=== PATIENT | female | born 1980 | race African-American/Black ===

== ENCOUNTER 2017-06-04 22:34 | Emergency (ER) | payer BC ==
[2017-06-04 22:58] VITALS: BP 149/82; PULSE 92; TEMP 98.1; BMI 29.5
--- NOTE | 2017-06-05 00:36 | PDOC ---
History of Present Illness <Briana Garza - Last Filed: 06/05/17 00:31> - History of Present Illness Initial Comments: 06/05/17 00:43 Patient is a 37 F, with PMHx of BPD, depression and substance abuse, who presents with 1 week of cold symptoms. Patient states that she has had a productive cough for a couple of weeks, producing thick mucus. Her cough has worsened in the past week. She is a current every day tobacco smoker and snorts cocaine regularly. She also mentioned that she occasionally has fainting spells that has been going on for years. She denies any fevers, chills, abdominal pain. She denies any chest pain, SOB. She denies any nausea, vomiting, diarrhea , or constipation. PCP: Darlene Jarrett Hx: Cocaine and tobacco use. Past suicidal attempts. <Vivienne Collins - Last Filed: 06/05/17 01:09> - General Chief Complaint: Cold Symptoms Stated Complaint: COLD SYMPTOMS Time Seen by Provider: 06/04/17 23:59 Past History - Past Medical History Psychiatric Problems: Yes (depression) - Immunization History Immunization Up to Date: Yes - Suicide/Smoking/Psychosocial Hx Smoking Status: Yes Smoking History: Never smoked Have you smoked in the past 12 months: Yes Number of Cigarettes Smoked Daily: 20 Information on smoking cessation initiated: No Hx Alcohol Use: No Drug/Substance Use Hx: No Substance Use Type: Alcohol, Cocaine, Marijuana <Briana Garza - Last Filed: 06/05/17 00:31> <Vivienne Collins - Last Filed: 06/05/17 01:09> - Past Medical History Allergies/Adverse Reactions: Allergies Allergy/AdvReac Type Severity Reaction Status Date / Time No Known Allergies Allergy Verified 06/04/17 22:58 Review of Systems - Review of Systems Comments:: 06/05/17 00:44 See HPI. All other systems reviewed and unremarkable <Vivienne Collins - Last Filed: 06/05/17 01:09> *Physical Exam - Vital Signs Last Vital Signs Temp Pulse Resp BP Pulse Ox 98.1 F 92 H 16 149/82 100 06/04/17 22:55 06/04/17 22:55 06/04/17 22:55 06/04/17 22:55 06/04/17 22:55 <Briana Garza - Last Filed: 06/05/17 00:31> - Vital Signs Last Vital Signs Temp Pulse Resp BP Pulse Ox 98.1 F 92 H 16 149/82 100 06/04/17 22:55 06/04/17 22:55 06/04/17 22:55 06/04/17 22:55 06/04/17 22:55 - Physical Exam Comments: 06/05/17 00:44 GENERAL: Awake, alert, and fully oriented, in no acute distress HEENT: EOMI, JEREMIAH MMM, OP WNL NECK: NCAT, no midline cervical tenderness CARDIOVASCULAR: RRR, nl s1/s2, no m/r/g LUNGS: CTABL, no w/r/r ABDOMEN: Soft, NTND. No CVA tenderness. EXTREMITIES: No edema, WWP, no rash NEURO: Neuro grossly intact, gait WNL, moving all 4. A&O x 3, mood/affect WNL. SKIN: Warm, Dry, normal turgor, no rashes or lesions noted. <Vivienne Collins - Last Filed: 06/05/17 01:09> Medical Decision Making - Medical Decision Making 06/05/17 00:31 37yoF extensvie psychi history, active PSA w/ IN cocaine, + active cig smoking presents w/slightly productive cough x weeks and sinus congestion. - cxr - drug and smoking cessation discussed. secondary complaint of lifelong syncopal events, last one > 1 week ago - instructed to f/u w/ PMD, Dr. Grimaldo. tertiary complaint of noncompliant w/ psychiatric care chronically - instructed to call her psychiatrist, Dr. Leonard ____ and schedule appointment. <Briana Garza - Last Filed: 06/05/17 00:31> *DC/Admit/Observation/Transfer - Discharge Dispostion Admit: No <GregBriana - Last Filed: 06/05/17 00:31> - Attestations Scribe Attestion: 06/05/17 00:45 Documentation prepared by Vivienne Collins, acting as medical lab assistant for Briana Garza MD. <Vivienne Collins - Last Filed: 06/05/17 01:09> Diagnosis at time of Disposition: Cocaine use, Cough - Discharge Dispostion Disposition: HOME Condition at time of disposition: Good - Referrals Referrals: Darlene Grimaldo MD [Primary Care Provider] - - Patient Instructions Printed Discharge Instructions: DI for Cough -- Adult Additional Instructions: cessation of smoking. do not use illegal drugs. Call your primary doctor and make an appointment to be seen next week to discuss long-term fainting events. Call or walk-in to your psychiatrist's office to re-establish psychiatric care now that you are back in [place]. - Post Discharge Activity
== END 2017-06-05 04:56 | disposition home or self-care (01) ==
LOC: JER 22:34
DX: J34.89 Other specified disorders of nose and nasal sinuses (principal); F14.10 Cocaine abuse, uncomplicated
CPT/HCPCS: 71046-TC-FY; 84703; 99281-25

== ENCOUNTER 2017-06-24 10:21 | Inpatient (IN) | payer OTHER ==
[2017-06-24 11:15] VITALS: BMI 29.9
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
[2017-06-24] MEDS ORDERED: MAGNESIUM HYDROX 2400MG/30ML ORAL SUSPENSION 30 ML CUP PO PRN (15:04)
[2017-06-24] MEDS ORDERED: NICOTINE POLACRILEX 4 MG GUM BUC PRN (15:04)
[2017-06-24] MEDS ORDERED: IBUPROFEN 400 MG TABLET (FP) PO PRN (15:04)
[2017-06-24] MEDS ORDERED: chlordiazePOXIDE HCL 25 MG CAPSULE PO PRN (15:04)
[2017-06-24] MEDS ORDERED: ACETAMINOPHEN 325 MG TABLET (FP) PO PRN (15:04)
[2017-06-24] MEDS ORDERED: LOPERAMIDE HCL 2 MG CAPSULE PO PRN (15:04)
[2017-06-24] MEDS ORDERED: guaiFENesin/D-METHORPHAN HB 10 ML UNIT-DOSE CUPS PO PRN (15:04)
[2017-06-24] MEDS ORDERED: MAG HYDROX/AL HYDROX/SIMETH 30 ML UNIT-DOSE CUP PO PRN (15:04)
[2017-06-24] MEDS ORDERED: MENTHOL/PHENOL 1 EACH UD MM PRN (15:04)
[2017-06-24] MEDS ORDERED: P-EPHED 60MG/TRIPROLIDI 2.5MG TABLET PO PRN (15:04)
[2017-06-24] MEDS ORDERED: MAGNESIUM CITRATE 300 ML BOTTLE PO PRN (15:04)
[2017-06-24] MEDS ORDERED: chlordiazePOXIDE HCL 25 MG CAPSULE PO ONE (15:45)
--- NOTE | 2017-06-24 15:48 | CONSULT ---
[facility] Psychiatric Consult - Data Date of interview: 06/24/17 Admission source: [facility] Identifying data: This is 37 years old AA female, single, homeless, unemployed, on PA with history of Bipolar Disorder, history of psychiatric hospitalizations , seeking detox management after abusing Alcohol, Cocaine, Cannabis and PCP. Substance Abuse History: Urine Drug Screen Results: THC-Marijuana, PCP- Phencyclidine, TCA-Tricyclic Antidepress. - Substances Abused. Alcohol. Route: Oral. Frequency: Daily. Amount used: 1 PINT VODKA , 1 PINT TEQUILA. Age of first use: 18. Date of Last Use: 06/24/17. Cocaine. Route: SNIFFING. Frequency: Daily. Amount used: $100. Age of first use: 24. Date of Last Use: 06/24/17. Ectasy. Route: Oral. Frequency: 1-2 times per week. Amount used: 4 PILLS. Age of first use: 24. Date of Last Use: . Marijuana/Hashish. Route: Smoking. Frequency: Daily. Amount used: $ 50. Age of first use: 18. Date of Last Use: 06/24/17. PCP. Route: Smoking. Frequency: 3-6 times per week. Amount used: $100. Age of first use: 28. Date of Last Use: 06/24/17 Medical History: Anemia history, Psychiatric History: Patient reports to carry Bipolar disorder, reports most recent psychiatric admission on 2017 at [facility], reports to carry Bipolar Disorder, taking prior to admission: Buspar 10mg po bid. Trazodone 150mg po qhs. Zyprexa 10 mg po qhs. Patient reports suicidal ideation history, reports history of suicidal attempts.Denies suicidal ideation at this time. Physical/Sexual Abuse/Trauma History: Denies. unclear Additional Comment: Urine Drug Screen Results: THC-Marijuana, PCP-Phencyclidine , TCA-Tricyclic Antidepress. Buspar 10mg po bid. Trazodone 150mg po qhs. Zyprexa 10 mg po qhs Mental Status Exam - Mental Status Exam Alert and Oriented to: Place, Person Cognitive Function: Fair Patient Appearance: Unkempt Mood: Anxious Affect: Mood Congruent Patient Behavior: Cooperative Speech Pattern: Appropriate Voice Loudness: Normal Thought Process: Circumstantial Hallucinations: Denies Suicidal Ideation: Denies Homicidal Ideation: Denies Insight/Judgement: Fair Sleep: Difficulty falling asleep Appetite: Weight gain Muscle strength/Tone: Normal Gait/Station: Normal Additional Comments: Buspar 10mg po bid. Trazodone 150mg po qhs. Zyprexa 10 mg po qhs Psychiatric Findings - Problem List ([place] 1, 2,3) (1) Alcohol dependence with uncomplicated withdrawal Status: Deleted (2) Cocaine dependence, uncomplicated Status: Chronic (3) Ecstasy type drug dependence Status: Chronic (4) PCP dependence Status: Chronic (5) History of bipolar disorder Status: Chronic (6) Cocaine use Status: Deleted (7) Bipolar disorder Status: Chronic - Initial Treatment Plan Initial Treatment Plan: Buspar 10mg po bid. Trazodone 150mg po qhs. Zyprexa 10 mg po qhs
[2017-06-24] MEDS: NICOTINE 21 MG/24 HOURS TOPICAL PATCH TD SCH (16:03)
[2017-06-24] MEDS: chlordiazePOXIDE HCL 25 MG CAPSULE PO SCH ×2 (17:43→22:32)
[2017-06-24] MEDS ORDERED: MELATONIN 5 MG TABLETS PO PRN (22:00)
[2017-06-24] MEDS: THIAMINE HCL 100 MG TABLET (FP) PO SCH (22:32)
[2017-06-24] MEDS: traZODone HCL 50 MG TABLET (FP) PO SCH (22:33)
[2017-06-24] MEDS: busPIRone HCL 10 MG TABLET (FP) PO SCH (22:33)
[2017-06-24] MEDS: OLANZapine 10 MG TABLET PO SCH (22:33)
[2017-06-25 01:28] LABS: URINE APPEARANCE CLOUDY; URINE BILIRUBIN NEGATIVE (<2.0 mg/dL); URINE BLOOD NEGATIVE (NEGATIVE); URINE COLOR YELLOW; URINE GLUCOSE (UA) NEGATIVE (NEGATIVE); URINE KETONE NEGATIVE (NEGATIVE); URINE LEUK ESTERASE NEGATIVE (NEGATIVE); URINE NITRITE NEGATIVE (NEGATIVE); URINE PROTEIN NEGATIVE (NEGATIVE); URINE UROBILINOGEN NEGATIVE mg/dL (0.2-1.0)
[2017-06-25] MEDS: chlordiazePOXIDE HCL 25 MG CAPSULE PO SCH ×4 (06:36→23:06)
--- NOTE | 2017-06-25 10:09 | EKG ---
Test Reason : Blood Pressure : / mmHG Vent. Rate : 083 BPM Atrial Rate : 083 BPM P-R Int : 126 ms QRS Dur : 086 ms QT Int : 364 ms P-R-T Axes : 062 055 049 degrees QTc Int : 427 ms NORMAL SINUS RHYTHM NORMAL ECG WHEN COMPARED WITH ECG OF 07-FEB-2015 13:48, NO SIGNIFICANT CHANGE WAS FOUND Confirmed by BUTCH ZAVALA MD ([id number]) on 06/25/2017 10:09:16 AM Referred By: Confirmed By:BUTCH ZAVALA MD
[2017-06-25 10:27] LABS: HEMATOCRIT 41.6 % (32.4-45.2); MCH 32.8 pg (25.7-33.7); MCHC 33.6 g/dl (32.0-36.0); MEAN CELL VOLUME 97.4 fl (80-96); MEAN PLT VOLUME 10.5 fl (7.5-11.1); PLATELET COUNT 233 K/MM3 (134-434); RBC 4.28 M/mm3 (3.60-5.2); WHITE BLOOD COUNT 6.7 K/mm3 (4.0-10.0)
[2017-06-25] MEDS: PRENATAL VITAMINS W/ FOLIC ACID TABLET (FP) PO SCH (10:40)
[2017-06-25] MEDS: busPIRone HCL 10 MG TABLET (FP) PO SCH ×2 (10:40→23:06)
[2017-06-25] MEDS: NICOTINE 21 MG/24 HOURS TOPICAL PATCH TD SCH (10:41)
--- NOTE | 2017-06-25 12:07 | PN ---
BHS CIWA - CIWA Score Nausea/Vomitin Muscle Tremors: 2 Anxiety: 2 Agitation: 2 Paroxysmal Sweats: 3 Orientation: 0-Oriented Tacttile Disturbances: 1-Very Mild Itch/Numbness Auditory Disturbances: 0-None Visual Disturbances: 0-None Headache: 0-None Present CIWA-Ar Total Score: 12 BHS Progress Note (SOAP) Subjective: interrupted sleep, sweats Vital Signs Temperature 98.1 F 06/25/17 10:00 Pulse Rate 99 H 06/25/17 10:00 Respiratory Rate 16 06/25/17 10:00 Blood Pressure 108/59 06/25/17 10:00 O2 Sat by Pulse Oximetry (%) Laboratory Tests 06/25/17 06/25/17 06/25/17 00:36 06:20 06:20 WBC RBC Hgb Hct MCV MCH MCHC RDW Plt Count MPV Urine Color Yellow Urine Appearance Cloudy Urine pH 5.0 Ur Specific [place] 1.024 Urine Protein Negative Urine Glucose (UA) Negative Urine Ketones Negative Urine Blood Negative Urine Nitrite Negative Urine Bilirubin Negative Urine Urobilinogen Negative Ur Leukocyte Esterase Negative RPR Titer Nonreactive HIV 1&2 Antibody Screen Negative HIV P24 Antigen Negative 06/25/17 06:20 WBC 6.7 RBC 4.28 Hgb 14.0 Hct 41.6 MCV 97.4 H MCH 32.8 MCHC 33.6 RDW 13.0 Plt Count 233 MPV 10.5 D Urine Color Urine Appearance Urine pH Ur Specific [place] Urine Protein Urine Glucose (UA) Urine Ketones Urine Blood Urine Nitrite Urine Bilirubin Urine Urobilinogen Ur Leukocyte Esterase RPR Titer HIV 1&2 Antibody Screen HIV P24 Antigen ppt aox3 in nad ambulating Plan: cont. detox increase fluids
[2017-06-25 16:14] LABS: ALBUMIN 4.2 g/dl (3.4-5.0); ANION GAP 12 (8-16); BLOOD UREA NITROGEN 10 mg/dL (7-18); CALCIUM 9.3 mg/dL (8.5-10.1); CHLORIDE 105 mmol/L (98-107); CO2 26 mmol/L (21-32); GLUCOSE,RANDOM 74 mg/dL (74-106); POTASSIUM 4.3 mmol/L (3.5-5.1); SGOT/AST 18 U/L (15-37); SGPT/ALT 20 U/L (12-78); SODIUM 143 mmol/L (136-145)
[2017-06-25 16:16] LABS: ALK PHOS 76 U/L (45-117); BILIRUBIN,TOTAL 0.8 mg/dL (0.2-1.0); TOT PROT 7.2 g/dl (6.4-8.2)
[2017-06-25] MEDS: THIAMINE HCL 100 MG TABLET (FP) PO SCH (23:05)
[2017-06-25] MEDS: OLANZapine 10 MG TABLET PO SCH (23:06)
[2017-06-25] MEDS: traZODone HCL 50 MG TABLET (FP) PO SCH (23:06)
[2017-06-26] MEDS: chlordiazePOXIDE HCL 25 MG CAPSULE PO SCH ×2 (06:25→10:51)
[2017-06-26] MEDS: PRENATAL VITAMINS W/ FOLIC ACID TABLET (FP) PO SCH (10:51)
[2017-06-26] MEDS: busPIRone HCL 10 MG TABLET (FP) PO SCH (10:51)
[2017-06-26] MEDS: NICOTINE 21 MG/24 HOURS TOPICAL PATCH TD SCH (10:52)
--- NOTE | 2017-06-26 11:26 | PN ---
S CIWA - CIWA Score Nausea/Vomitin Muscle Tremors: 3 Anxiety: 3 Agitation: 2 Paroxysmal Sweats: 1-Minimal Palms Moist Orientation: 0-Oriented Tacttile Disturbances: 1-Very Mild Itch/Numbness Auditory Disturbances: 1-Very Mild Visual Disturbances: 0-None Headache: 2-Mild CIWA-Ar Total Score: 16 BHS Progress Note (SOAP) Subjective: ALERT,IRRITABLE,ANXIOUS,INTERRUPTED SLEEP,TREMOR Objective: 06/26/17 11:23 Vital Signs Temperature 97.3 F L 06/26/17 06:59 Pulse Rate 96 H 06/26/17 06:59 Respiratory Rate 18 06/26/17 06:59 Blood Pressure 115/69 06/26/17 06:59 O2 Sat by Pulse Oximetry (%) EKG NSR,NORMAL ECG Laboratory Last Values WBC 6.7 K/mm3 (4.0-10.0) 06/25/17 06:20 RBC 4.28 M/mm3 (3.60-5.2) 06/25/17 06:20 Hgb 14.0 GM/dL (10.7-15.3) 06/25/17 06:20 Hct 41.6 % (32.4-45.2) 06/25/17 06:20 MCV 97.4 fl (80-96) H 06/25/17 06:20 MCH 32.8 pg (25.7-33.7) 06/25/17 06:20 MCHC 33.6 g/dl (32.0-36.0) 06/25/17 06:20 RDW 13.0 % (11.6-15.6) 06/25/17 06:20 Plt Count 233 K/MM3 (134-434) 06/25/17 06:20 MPV 10.5 fl (7.5-11.1) D 06/25/17 06:20 Sickle Cell Screen Negative (NEGATIVE) 06/25/17 06:20 Sodium 143 mmol/L (136-145) 06/25/17 06:20 Potassium 4.3 mmol/L (3.5-5.1) 06/25/17 06:20 Chloride 105 mmol/L (98-107) 06/25/17 06:20 Carbon Dioxide 26 mmol/L (21-32) 06/25/17 06:20 Anion Gap 12 (8-16) 06/25/17 06:20 BUN 10 mg/dL (7-18) 06/25/17 06:20 Creatinine 1.0 mg/dL (0.55-1.02) 06/25/17 06:20 Creat Clearance w eGFR > 60 (>60) 06/25/17 06:20 Random Glucose 74 mg/dL (74-106) 06/25/17 06:20 Calcium 9.3 mg/dL (8.5-10.1) 06/25/17 06:20 Total Bilirubin 0.8 mg/dL (0.2-1.0) D 06/25/17 06:20 AST 18 U/L (15-37) 06/25/17 06:20 ALT 20 U/L (12-78) 06/25/17 06:20 Alkaline Phosphatase 76 U/L (45-117) 06/25/17 06:20 Total Protein 7.2 g/dl (6.4-8.2) 06/25/17 06:20 Albumin 4.2 g/dl (3.4-5.0) 06/25/17 06:20 Urine Color Yellow 06/25/17 00:36 Urine Appearance Cloudy 06/25/17 00:36 Urine pH 5.0 (5.0-8.0) 06/25/17 00:36 Ur Specific [place] 1.024 (1.001-1.035) 06/25/17 00:36 Urine Protein Negative (NEGATIVE) 06/25/17 00:36 Urine Glucose (UA) Negative (NEGATIVE) 06/25/17 00:36 Urine Ketones Negative (NEGATIVE) 06/25/17 00:36 Urine Blood Negative (NEGATIVE) 06/25/17 00:36 Urine Nitrite Negative (NEGATIVE) 06/25/17 00:36 Urine Bilirubin Negative (<2.0 mg/dL) 06/25/17 00:36 Urine Urobilinogen Negative mg/dL (0.2-1.0) 06/25/17 00:36 Ur Leukocyte Esterase Negative (NEGATIVE) 06/25/17 00:36 RPR Titer Nonreactive (NONREACTIVE) 06/25/17 06:20 HIV 1&2 Antibody Screen Negative 06/25/17 06:20 HIV P24 Antigen Negative 06/25/17 06:20 Assessment: 06/26/17 11:25 WITHDRAWAL SYMPTOM Plan: CONTINUE DETOX
[2017-06-26 11:29] VITALS: BP 120/75; PULSE 95; TEMP 97.5
--- NOTE | 2017-06-26 11:33 | DS ---
[facility] Detox Discharge Summary Admission Date: 06/24/17 Discharge Date: 06/26/17 - History Present History: Alcohol Dependence, Cocaine Dependence Additional Comments: PATIENT DID NOT WANT TO COMPLETE TREATMENT,STATED HAS PERSONAL ISSUES TO TAKE CARE OFF,SEEN BY COUNSELOR,SIGNED RELEASE AMA Pertinent Past History: PCP DEPENDENCE ECSTACY DRUG DEPENDENCE BIPOLAR DISORDER - Physical Exam Results Vital Signs: Vital Signs Temperature 97.5 F L 06/26/17 11:28 Pulse Rate 95 H 06/26/17 11:28 Respiratory Rate 20 06/26/17 11:28 Blood Pressure 120/75 06/26/17 11:28 O2 Sat by Pulse Oximetry (%) Pertinent Admission Physical Exam Findings: WITHDRAWAL SINGS AND SYMPTOM Laboratory Last Values WBC 6.7 K/mm3 (4.0-10.0) 06/25/17 06:20 RBC 4.28 M/mm3 (3.60-5.2) 06/25/17 06:20 Hgb 14.0 GM/dL (10.7-15.3) 06/25/17 06:20 Hct 41.6 % (32.4-45.2) 06/25/17 06:20 MCV 97.4 fl (80-96) H 06/25/17 06:20 MCH 32.8 pg (25.7-33.7) 06/25/17 06:20 MCHC 33.6 g/dl (32.0-36.0) 06/25/17 06:20 RDW 13.0 % (11.6-15.6) 06/25/17 06:20 Plt Count 233 K/MM3 (134-434) 06/25/17 06:20 MPV 10.5 fl (7.5-11.1) D 06/25/17 06:20 Sickle Cell Screen Negative (NEGATIVE) 06/25/17 06:20 Sodium 143 mmol/L (136-145) 06/25/17 06:20 Potassium 4.3 mmol/L (3.5-5.1) 06/25/17 06:20 Chloride 105 mmol/L (98-107) 06/25/17 06:20 Carbon Dioxide 26 mmol/L (21-32) 06/25/17 06:20 Anion Gap 12 (8-16) 06/25/17 06:20 BUN 10 mg/dL (7-18) 06/25/17 06:20 Creatinine 1.0 mg/dL (0.55-1.02) 06/25/17 06:20 Creat Clearance w eGFR > 60 (>60) 06/25/17 06:20 Random Glucose 74 mg/dL (74-106) 06/25/17 06:20 Calcium 9.3 mg/dL (8.5-10.1) 06/25/17 06:20 Total Bilirubin 0.8 mg/dL (0.2-1.0) D 06/25/17 06:20 AST 18 U/L (15-37) 06/25/17 06:20 ALT 20 U/L (12-78) 06/25/17 06:20 Alkaline Phosphatase 76 U/L (45-117) 06/25/17 06:20 Total Protein 7.2 g/dl (6.4-8.2) 06/25/17 06:20 Albumin 4.2 g/dl (3.4-5.0) 06/25/17 06:20 Urine Color Yellow 06/25/17 00:36 Urine Appearance Cloudy 06/25/17 00:36 Urine pH 5.0 (5.0-8.0) 06/25/17 00:36 Ur Specific [place] 1.024 (1.001-1.035) 06/25/17 00:36 Urine Protein Negative (NEGATIVE) 06/25/17 00:36 Urine Glucose (UA) Negative (NEGATIVE) 06/25/17 00:36 Urine Ketones Negative (NEGATIVE) 06/25/17 00:36 Urine Blood Negative (NEGATIVE) 06/25/17 00:36 Urine Nitrite Negative (NEGATIVE) 06/25/17 00:36 Urine Bilirubin Negative (<2.0 mg/dL) 06/25/17 00:36 Urine Urobilinogen Negative mg/dL (0.2-1.0) 06/25/17 00:36 Ur Leukocyte Esterase Negative (NEGATIVE) 06/25/17 00:36 RPR Titer Nonreactive (NONREACTIVE) 06/25/17 06:20 HIV 1&2 Antibody Screen Negative 06/25/17 06:20 HIV P24 Antigen Negative 06/25/17 06:20 Vital Signs Temperature 97.5 F L 06/26/17 11:28 Pulse Rate 95 H 06/26/17 11:28 Respiratory Rate 20 06/26/17 11:28 Blood Pressure 120/75 06/26/17 11:28 O2 Sat by Pulse Oximetry (%) - Medication Discharge Medications: Ambulatory Orders Buspirone HCl [Buspar -] 10 mg PO BID #60 tablet 06/24/17 Olanzapine [ZyPREXA -] 10 mg PO HS #30 tablet 06/24/17 traZODone HCL [Desyrel -] 150 mg PO HS #30 tablet 06/24/17 - Diagnosis (1) Alcohol dependence with uncomplicated withdrawal Current Visit: Yes Status: Chronic (2) Cocaine dependence, uncomplicated Current Visit: Yes Status: Chronic (3) Ecstasy type drug dependence Current Visit: Yes Status: Chronic (4) History of bipolar disorder Current Visit: Yes Status: Chronic (5) PCP dependence Current Visit: Yes Status: Chronic (6) Cocaine use Current Visit: No Status: Chronic - AMA Did Patient Leave Against Medical Advice: Yes
[2017-06-26] MEDS ORDERED: chlordiazePOXIDE 5 MG CAPSULE PO SCH (17:00)
[2017-06-27] MEDS ORDERED: chlordiazePOXIDE HCL 10 MG CAPSULE PO SCH (17:00)
== END 2017-06-26 11:53 | disposition left against medical advice (07) | DRG 770 ==
LOC: YASAS 10:21 → Y6N 15:12
PROVIDERS: ADMIT Internal Medicine; ATTEND Internal Medicine
PROC: HZ2ZZZZ Detoxification Services for Substance Abuse Treatment (ICD-10-PCS; principal; 2017-06-24)
DX: F10.230 Alcohol dependence with withdrawal, uncomplicated (principal); F14.20 Cocaine dependence, uncomplicated; F15.20 Other stimulant dependence, uncomplicated; F16.20 Hallucinogen dependence, uncomplicated; F31.9 Bipolar disorder, unspecified; Z86.2 Personal history of diseases of the blood and blood-forming organs and certain disorders involving the immune mechanism; Z91.5 Personal history of self-harm; Z87.42 Personal history of other diseases of the female genital tract; Z86.19 Personal history of other infectious and parasitic diseases
CPT/HCPCS: 36415; 80053; 81003; 85027; 85660; 86593; 87389; 93005; 93010

== ENCOUNTER 2017-06-28 10:34 | Inpatient (IN) | payer OTHER ==
[2017-06-28 10:46] VITALS: BMI 31.6
--- NOTE | 2017-06-28 11:10 | HP ---
[facility] Re[facility] Assess/Revision - Admission History Admitted to Rehab from: [facility] Date of Admission to Rehab: 06/28/2017 - Vital signs Vital Signs: Vital Signs Period Temp Pulse Resp BP Sys/Shultz Pulse Ox Last 24 Hr 97 F 92 18 152/89 - Findings Detox History & Physical reviewed: Yes Concur with findings: Yes Inpatient Rehab Admission - Initial Determination Are CD services needed?: Yes Free of communicable disease: Yes Not in need of hospitalization: Yes - Rehab Admission Criteria Lacks judgement: Yes Patient is meeting Inpatient Rehab admission criteria:: Yes
[2017-06-28] MEDS ORDERED: LOPERAMIDE HCL 2 MG CAPSULE PO PRN (11:12)
[2017-06-28] MEDS ORDERED: ACETAMINOPHEN 325 MG TABLET (FP) PO PRN (11:12)
[2017-06-28] MEDS ORDERED: MENTHOL/PHENOL 1 EACH UD MM PRN (11:12)
[2017-06-28] MEDS ORDERED: hydrOXYzine PAMOATE 50 MG CAPSULE (FP) PO PRN (11:12)
[2017-06-28] MEDS ORDERED: IBUPROFEN 400 MG TABLET (FP) PO PRN (11:12)
[2017-06-28] MEDS ORDERED: P-EPHED 60MG/TRIPROLIDI 2.5MG TABLET PO PRN (11:12)
[2017-06-28] MEDS ORDERED: NICOTINE POLACRILEX 2 MG GUM BUC PRN (11:12)
[2017-06-28] MEDS ORDERED: MAGNESIUM HYDROX 2400MG/30ML ORAL SUSPENSION 30 ML CUP PO PRN (11:12)
[2017-06-28] MEDS ORDERED: MAGNESIUM CITRATE 300 ML BOTTLE PO PRN (11:12)
[2017-06-28] MEDS ORDERED: guaiFENesin/D-METHORPHAN HB 10 ML UNIT-DOSE CUPS PO PRN (11:12)
[2017-06-28] MEDS ORDERED: MAG HYDROX/AL HYDROX/SIMETH 30 ML UNIT-DOSE CUP PO PRN (11:12)
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
[2017-06-28] MEDS: NICOTINE 21 MG/24 HOURS TOPICAL PATCH TD SCH (15:42)
[2017-06-28] MEDS: THIAMINE HCL 100 MG TABLET (FP) PO SCH (21:39)
[2017-06-28] MEDS ORDERED: MELATONIN 5 MG TABLETS PO PRN (22:00)
[2017-06-29] MEDS: PRENATAL VITAMINS W/ FOLIC ACID TABLET (FP) PO SCH (10:45)
[2017-06-29] MEDS: NICOTINE 21 MG/24 HOURS TOPICAL PATCH TD SCH (10:45)
--- NOTE | 2017-06-29 11:42 | EKG ---
Test Reason : Blood Pressure : / mmHG Vent. Rate : 098 BPM Atrial Rate : 098 BPM P-R Int : 128 ms QRS Dur : 090 ms QT Int : 354 ms P-R-T Axes : 068 069 056 degrees QTc Int : 451 ms NORMAL SINUS RHYTHM RSR' OR QR PATTERN IN V1 SUGGESTS RIGHT VENTRICULAR CONDUCTION DELAY BORDERLINE ECG WHEN COMPARED WITH ECG OF 24-JUN-2017 16:16, NO SIGNIFICANT CHANGE WAS FOUND Confirmed by Shorty Bauer MD ([id number]) on 06/29/2017 11:42:00 AM Referred By: Confirmed By:Shorty Bauer MD
[2017-06-29] MEDS ORDERED: OLANZapine 10 MG TABLET PO STA (16:34)
--- NOTE | 2017-06-29 18:30 | PN ---
Psychiatric Progress Note Vital Signs: Vital Signs Period Temp Pulse Resp BP Sys/Shultz Pulse Ox Last 24 Hr 97.9 F 83 106/72 Date of Session: 06/29/17 Chief Complaint:: " I feel sad." HPI: Day 2 of hospitalization at [address]Ms Veliz just got transferred from [address] [place] [address].Hospital course was uneventful until she complained to her counselor that she was having suicidal thoughts.This is the reason for this psychiatric re-evaluation. ROS: Unremarkable. Current Medications: Active Medications Generic Name Dose Route Start Last Admin Trade Name Freq PRN Reason Stop Dose Admin Acetaminophen 650 mg 06/28/17 11:12 Tylenol - PO Q4H PRN FEVER Al Hydroxide/Mg Hydroxide 30 ml 06/28/17 11:12 Mylanta Oral Suspension - PO Q6H PRN DYSPEPSIA Buspirone HCl 10 mg 06/29/17 22:00 Buspar - PO BID DESIREE Eucalyptus/Menthol/Phenol/Sorbitol 1 each 06/28/17 11:12 Cepastat Lozenge - MM Q4H PRN SORE THROAT Guaifenesin 10 ml 06/28/17 11:12 Robitussin Dm - PO Q6H PRN COUGH Hydroxyzine Pamoate 50 mg 06/28/17 11:12 Vistaril - PO Q4H PRN AGITATION Ibuprofen 400 mg 06/28/17 11:12 Motrin - PO Q6H PRN Pain Level 4-6 Loperamide HCl 4 mg 06/28/17 11:12 Imodium - PO Q6H PRN DIARRHEA Magnesium Citrate 300 ml 06/28/17 11:12 Citroma - PO Q48H PRN CONSTIPATION Magnesium Hydroxide 30 ml 06/28/17 11:12 Milk Of Magnesia - PO DAILY PRN CONSTIPATION Melatonin 5 mg 06/28/17 22:00 Melatonin PO HS PRN INSOMNIA Nicotine 21 mg 06/28/17 13:30 06/29/17 10:45 Nicoderm Patch - TD Not Given DAILY DESIREE Nicotine Polacrilex 2 mg 06/28/17 11:12 Nicorette Gum - BUC Q2H PRN NICOTINE REPLACEMENT RX Olanzapine 10 mg 06/29/17 22:00 Zyprexa - PO HS DESIREE Multivit/Folic Acid/Iron 1 tab 06/29/17 10:00 06/29/17 10:45 Vitamins (Sj[facility]) - PO 1 tab DAILY DESIREE Administration Pseudoephedrine/Triprolidine 1 combo 06/28/17 11:12 Actifed - PO TID PRN NASAL CONGESTION Thiamine HCl 100 mg 06/28/17 22:00 06/28/17 21:39 Vitamin B1 - PO Not Given HS DESIREE Trazodone HCl 150 mg 06/29/17 22:00 Desyrel - PO HS DESIREE Medication(s) Change(s): No indication for change of medications. Current Side Effect: No Lab tests ordered: No Lab tests reviewed: Yes Provider note:: Toxicology screen on admission : Urine Drug Screen Results: THC- Marijuana, PCP-Phencyclidine, TCA-Tricyclic Antidepressant.Noted.Chart reviewed.Met with patient at bedside.Female staff in attendance.Patient is observed as calm,well controlled,cooperative and conversant.She reports that she missed her common-law ,now in residential for another stretch of three years (has done 12 already),that she wanted to send him a message via E-mail.It appears that the suicidal threat came after the patient realized that her wish will not be immediately gratified.In this conversation, Ms Veliz inquired about how she could secure [facility] benefits nd housing.She is attentive to the information provided by this display card writer and she promises to be adherent to every aspect of her treatment plan (inpatient and aftercare).Patient exhibits any evidence of psychosis or donny.Thought processes are clear,relevant,coherent and goal-directed.No acting out.Patient vehemently denies suicidal ideation, intent or plan.Clearly future-oriented.No homicidal thoughts or plan.Hospital course remains benign.Ms Veliz is NOT a danger to self or others at this time.NO indication for special observation.Patient can be managed at [facility] on her current treatment protocol and close observation.Stable mental status.Unit psychiatrist will follow in AM and adjust medications. Total face to face time:: 35 Mental Status Exam - Mental Status Exam Alert and Oriented to: Time, Place, Person Cognitive Function: Good Patient Appearance: Well Groomed (obese) Mood: Sad (but receptive to encouragement and support), Hopeful Affect: Appropriate, Normal Range Patient Behavior: Appropriate, Cooperative Speech Pattern: Clear, Appropriate Voice Loudness: Normal Thought Process: Intact, Goal Oriented Thought Disorder: Not Present Hallucinations: Denies Suicidal Ideation: Denies Homicidal Ideation: Denies Insight/Judgement: Fair Sleep: Well Appetite: Good Muscle strength/Tone: Normal (no complaints offered) Gait/Station: Normal Psychiatric Treatment Plan - Problem List (1) Alcohol dependence Comment: . (2) Cocaine dependence, uncomplicated Comment: . (3) Ecstasy type drug dependence Comment: . (4) Nicotine dependence Comment: . (7) Bipolar disorder Comment: .
[2017-06-29] MEDS ORDERED: PT OWN MED DRAWER 7, Y5N ONE (21:58)
[2017-06-29] MEDS ORDERED: traZODone HCL 150 MG TABLET PO SCH (22:00)
[2017-06-29] MEDS ORDERED: traZODone HCL 50 MG TABLET (FP) PO SCH (22:17)
[2017-06-29] MEDS: busPIRone HCL 10 MG TABLET (FP) PO SCH (22:33)
[2017-06-29] MEDS: THIAMINE HCL 100 MG TABLET (FP) PO SCH (22:33)
[2017-06-29] MEDS: OLANZapine 10 MG TABLET PO SCH (22:33)
[2017-06-30 07:20] VITALS: TEMP 98
[2017-06-30] MEDS ORDERED: PT OWN MED DRAWER 7, Y5N ONE ×3 (09:08→23:52)
[2017-06-30] MEDS: PRENATAL VITAMINS W/ FOLIC ACID TABLET (FP) PO SCH (10:45)
[2017-06-30] MEDS: NICOTINE 21 MG/24 HOURS TOPICAL PATCH TD SCH (10:47)
[2017-06-30] MEDS: busPIRone HCL 10 MG TABLET (FP) PO SCH ×2 (11:00→21:53)
[2017-06-30] MEDS: THIAMINE HCL 100 MG TABLET (FP) PO SCH (21:53)
[2017-06-30] MEDS: OLANZapine 10 MG TABLET PO SCH (21:54)
[2017-07-01 07:15] VITALS: BP 122/84; PULSE 94
[2017-07-01] MEDS: busPIRone HCL 10 MG TABLET (FP) PO SCH (09:03)
[2017-07-01] MEDS: NICOTINE 21 MG/24 HOURS TOPICAL PATCH TD SCH (09:03)
[2017-07-01] MEDS: PRENATAL VITAMINS W/ FOLIC ACID TABLET (FP) PO SCH (09:03)
--- NOTE | 2017-07-01 09:24 | PN ---
STEVAN Progress Note Note: [employer] Tutor was informed that patient decided to sign out today AMA despite strong medical recommendations to continue stabilization on inpatient basis. She will continue her current medications as per plan, script provided.
== END 2017-07-01 09:07 | disposition left against medical advice (07) | DRG 770 ==
LOC: YASAS 10:34 → Y3E 12:20
PROVIDERS: ADMIT Psychiatry & Neurology Psychiatry; ATTEND Psychiatry & Neurology Psychiatry
PROC: HZ42ZZZ Group Counseling for Substance Abuse Treatment, Cognitive-Behavioral (ICD-10-PCS; principal; 2017-06-28)
DX: F10.20 Alcohol dependence, uncomplicated (principal); F14.20 Cocaine dependence, uncomplicated; F15.20 Other stimulant dependence, uncomplicated; F16.20 Hallucinogen dependence, uncomplicated; F17.210 Nicotine dependence, cigarettes, uncomplicated; F19.24 Other psychoactive substance dependence with psychoactive substance-induced mood disorder; F31.81 Bipolar II disorder; Z91.5 Personal history of self-harm
CPT/HCPCS: 93005; 93010